=== PATIENT | female | born 1965 | race Caucasian/White ===

== ENCOUNTER 2022-01-01 10:41 | Outpatient (CLI) | payer BC, SELFPAY ==
[2022-01-01 14:03] LABS: Chloride* 105 mmol/L (96-114); Potassium* 4.6 mmol/L (3.6-5.1); Sodium* 137 mmol/L (135-149)
[2022-01-01 14:06] LABS: Blood Urea Nitrogen* 17 mg/dL (7-30); Carbon Dioxide* 27 mmol/L (20-32); Creatinine* 0.7 mg/dL (0.5-1.5); Estimated Glomerular Filt Rate 102 ml/min
[2022-01-01 14:07] LABS: Calcium* 9.9 mg/dL (8.4-10.6); Glucose* 108 mg/dL (60-115)
[2022-01-01 14:43] LABS: Thyroid Stimulating Hormone* < 0.015 uIU/mL (0.270-4.20)
== END 2022-01-01 10:42 | disposition home or self-care (01) ==
PROVIDERS: PCP Family Medicine; Visit Provider Family Medicine
DX: E03.9 Hypothyroidism, unspecified (principal); F41.1 Generalized anxiety disorder
CPT/HCPCS: 80048; 84443

== ENCOUNTER 2022-03-10 11:56 | Outpatient (CLI) | payer BC, SELFPAY ==
[2022-03-10 14:42] LABS: Free T4 Free Thyroxine* 0.78 ng/dL (0.70-1.85)
== END 2022-03-10 11:57 | disposition home or self-care (01) ==
LOC: NFLDREF 11:57
PROVIDERS: PCP Family Medicine; Visit Provider Family Medicine
DX: E03.9 Hypothyroidism, unspecified (principal)
CPT/HCPCS: 84439; 84443

== ENCOUNTER 2022-12-23 11:42 | Outpatient (CLI) | payer BC, SELFPAY | END 2022-12-23 11:43 | disposition home or self-care (01) | PROVIDERS: PCP Family Medicine; Visit Provider Family Medicine | DX: E03.9 Hypothyroidism, unspecified (principal); R63.5 Abnormal weight gain; Z13.6 Encounter for screening for cardiovascular disorders | CPT/HCPCS: 80048; 80061; 84443 ==